=== PATIENT | female | born 1950 | race Caucasian/White ===

== ENCOUNTER 2019-04-16 14:15 | Emergency (ER) | payer MEDICARE, OTHER ==
[~2019-04-16] VITALS: Ht 162.6 cm; Wt 72.6 kg
[~2019-04-16 14:15] MED LIST: CITA20; CITA20 PO; ERYT.5TO BOTHEYES; HYDR1TAB94 PO; Keflex500 MG PO; METF500C PO; Norco 5-325 Ta1 EACH PO; PRAV20 PO; VITAMIN D3400 UNIT; Zofran8 MG PO
[2019-04-16 14:50] LABS: BASOPHILS ABSOLUTE AUTO 0.05 K/mm3 (0.00-0.23); BASOPHILS PERCENT AUTO 1 % (0-2); EOSINOPHILS ABSOLUTE AUTO 0.09 K/mm3 (0.00-0.68); EOSINOPHILS PERCENT AUTO 1 % (0-6); Hematocrit 38.8 % (33.0-51.0); Hemoglobin 13.2 g/dL (11.5-16.0); IMMATURE GRAN ABSOLUTE AUTO 0.03 K/mm3 (0.00-0.10); IMMATURE GRAN PERCENT AUTO 0 % (0-1); LYMPHOCYTES ABSOLUTE AUTO 0.86 K/mm3 (0.84-5.20); LYMPHOCYTES PERCENT AUTO 9 % (21-46); MONOCYTES ABSOLUTE AUTO 0.72 K/mm3 (0.16-1.47); MONOCYTES PERCENT AUTO 8 % (4-13); Mean Corpuscular HGB 30.8 pg (26.0-34.0); Mean Corpuscular Volume 90 fL (80-100); Mean Platelet Volume 11.1 fL (9.1-12.4); NEUTROPHILS ABSOLUTE AUTO 7.84 K/mm3 (1.96-9.15); NEUTROPHILS PERCENT AUTO 82 % (41-73); Platelet Count 208 K/mm3 (150-400); RDW Coefficient Variation 12.3 % (11.7-14.2); RDW Standard Deviation 40.9 fL (35.1-46.3); Red Blood Cell Count 4.29 M/mm3 (3.80-5.20); White Blood Cell Count 9.59 K/mm3 (4.00-11.30)
[2019-04-16 15:13] LABS: Alanine Aminotransfer (ALT/SGP 37 U/L (12-78); Albumin, Blood 3.9 g/dL (3.4-5.0); Albumin/Globulin Ratio 1.1 (0.8-1.8); Alk Phos 103 U/L (50-136); Anion Gap 7 mmol/L (6-16); Aspartate Aminotrans (AST/SGOT 24 U/L (12-37); Bilirubin, Total 0.2 mg/dL (0.1-1.0); Blood Urea Nitrogen 18 mg/dL (8-24); Bun/Creatinine Ratio 23.3 (12.0-20.0); CO2, Blood 25 mmol/L (21-32); Calcium, Blood 9.3 mg/dL (8.5-10.1); Chloride, Blood 107 mmol/L (98-108); Creatinine, Blood 0.77 mg/dL (0.40-1.00); Globulin, Blood 3.7 g/dL (2.2-4.0); Glomerular Filtration Rate >60 (60-); Glucose, Blood 99 mg/dL (70-99); Potassium, Blood 4.2 mmol/L (3.5-5.5); Sodium, Blood 139 mmol/L (136-145); Total Protein, Blood 7.6 g/dL (6.4-8.2); Troponin I <0.015 ng/mL (0.000-0.040)
[2019-04-16] MEDS ORDERED: Prednisone20 MG PO (16:16)
[2019-04-16] MEDS ORDERED: BENZ100A PO (16:16)
== END 2019-04-16 16:36 | disposition home or self-care (01) ==
LOC: ER 14:15
PROVIDERS: Physician Assistant
DX: J20.8 Acute bronchitis due to other specified organisms (principal); B97.89 Other viral agents as the cause of diseases classified elsewhere; Z79.899 Other long term (current) drug therapy; Z79.84 Long term (current) use of oral hypoglycemic drugs; Z87.891 Personal history of nicotine dependence
CPT/HCPCS: 36415; 71046; 80053; 83690; 84484; 85025; 93005; 93010; 94640; 99284-25; J7512

== ENCOUNTER 2019-09-24 20:00 | Emergency (ER) | payer MEDICARE, OTHER ==
[~2019-09-24] VITALS: Ht 162.6 cm; Wt 65.8 kg
[~2019-09-24 20:00] MED LIST changes: +BENZ100A PO; +Prednisone20 MG PO
== END 2019-09-24 23:14 | disposition home or self-care (01) ==
LOC: ER 20:00
DX: S01.01XA Laceration without foreign body of scalp, initial encounter (principal); F32.9 Major depressive disorder, single episode, unspecified; E78.5 Hyperlipidemia, unspecified; Z23 Encounter for immunization; Z79.899 Other long term (current) drug therapy; Z79.84 Long term (current) use of oral hypoglycemic drugs; Z87.891 Personal history of nicotine dependence; W18.30XA Fall on same level, unspecified, initial encounter
CPT/HCPCS: 12002; 70450; 90714; 99283-25

== ENCOUNTER 2019-10-06 16:51 | Emergency (ER) | payer MEDICARE, OTHER ==
[~2019-10-06] VITALS: Ht 160 cm; Wt 65.8 kg
== END 2019-10-06 17:07 | disposition home or self-care (01) ==
LOC: ER 16:51
DX: S01.01XD Laceration without foreign body of scalp, subsequent encounter (principal); Z87.891 Personal history of nicotine dependence

== ENCOUNTER → 2021-07-23 | Outpatient (CLI) | payer MEDICARE, OTHER ==
[2021-07-23 20:30] LABS: Adenovirus F 40/41 Not Detected (NOT DETECT); Astrovirus Not Detected (NOT DETECT); Campylobacter Sp Not Detected (NOT DETECT); Cryptosporidium Not Detected (NOT DETECT); Cyclospora Cayetanensis Not Detected (NOT DETECT); E. Coli O157 Not Detected (NOT DETECT); Entamoeba Histolytica Not Detected (NOT DETECT); Enteroaggregative E. coli-EAEC Not Detected (NOT DETECT); Enteropathogenic E. coli-EPEC Not Detected (NOT DETECT); Enterotoxigenic E. coli-ETEC Not Detected (NOT DETECT); Giardia Lamblia Not Detected (NOT DETECT); Norovirus GI/GII Not Detected (NOT DETECT); Plesiomonas Shigelloides Not Detected (NOT DETECT); Rotavirus A Not Detected (NOT DETECT); Salmonella Sp Not Detected (NOT DETECT); Sapovirus Not Detected (NOT DETECT); Shiga Toxin-prod E. coli-STEC Not Detected (NOT DETECT); Shigella/Enteroin E. coli-EIEC Not Detected (NOT DETECT); Vibrio Cholerae Not Detected (NOT DETECT); Vibrio Sp Not Detected (NOT DETECT); Yersinia Enterocolitica Not Detected (NOT DETECT)
== END | disposition home or self-care (01) ==
LOC: LAB SHORT 13:30
PROVIDERS: Physician Assistant Medical
DX: R11.0 Nausea (principal); R14.0 Abdominal distension (gaseous); R19.7 Diarrhea, unspecified
CPT/HCPCS: 87507

== ENCOUNTER 2022-08-08 10:04 | Emergency (ER) | payer MEDICARE, OTHER ==
[~2022-08-08] VITALS: Ht 162.6 cm; Wt 68.0 kg
[2022-08-08] MEDS ORDERED: TRAZ50 PO (10:19)
[2022-08-08] MEDS ORDERED: OMEP20ER PO (10:20)
[2022-08-08] MEDS ORDERED: Ativan1 MG PO (11:55)
[2022-08-08 12:07] VITALS: BP 123/70
== END 2022-08-08 12:08 | disposition home or self-care (01) ==
LOC: ER 10:04
DX: F41.9 Anxiety disorder, unspecified (principal); R20.0 Anesthesia of skin; M54.50 Low back pain, unspecified; G89.29 Other chronic pain; E78.5 Hyperlipidemia, unspecified; F32.A Depression, unspecified; Z87.891 Personal history of nicotine dependence; Z85.42 Personal history of malignant neoplasm of other parts of uterus; Z79.899 Other long term (current) drug therapy; Z79.84 Long term (current) use of oral hypoglycemic drugs
CPT/HCPCS: 96374; 99283-25; J2060

== ENCOUNTER 2023-03-03 09:19 | Emergency (ER) | payer OTHER, MEDICARE ==
[~2023-03-03] VITALS: Ht 162.6 cm; Wt 68.0 kg
[~2023-03-03 09:19] MED LIST changes: +Ativan1 MG PO; +OMEP20ER PO; +TRAZ50 PO
[2023-03-03 09:43] VITALS: BP 143/78
[2023-03-03] MEDS ORDERED: OXAYDO5 M1 PO (11:24)
[2023-03-03] MEDS ORDERED: IBUP600 PO (11:24)
== END 2023-03-03 11:34 | disposition home or self-care (01) ==
LOC: ER 09:19
DX: S20.212A Contusion of left front wall of thorax, initial encounter (principal); Z87.81 Personal history of (healed) traumatic fracture; E78.5 Hyperlipidemia, unspecified; Z87.891 Personal history of nicotine dependence; Z85.42 Personal history of malignant neoplasm of other parts of uterus; Z79.84 Long term (current) use of oral hypoglycemic drugs; Z79.899 Other long term (current) drug therapy; V28.49XA Other motorcycle driver injured in noncollision transport accident in traffic accident, initial encounter; Y92.410 Unspecified street and highway as the place of occurrence of the external cause
CPT/HCPCS: 71101; 96372; 99284-25; A9270; J1885

== ENCOUNTER 2023-05-11 17:11 | Emergency (ER) | payer MEDICARE, OTHER ==
[~2023-05-11] VITALS: Ht 162.6 cm; Wt 68.0 kg
[~2023-05-11 17:11] MED LIST changes: +IBUP600 PO; +OXAYDO5 M1 PO
[2023-05-11] MEDS ORDERED: Ondansetron HCl 2 MG / ML 2ML Vial IV ONE (17:50)
[2023-05-11] MEDS ORDERED: FentaNYL Citrate 50 MCG/ML 2 ML Injection IV ONE ×2 (17:50→19:10)
[2023-05-11] MEDS ORDERED: Ketorolac Tromethamine 30mg Vial IV ONE (19:30)
[2023-05-11] MEDS ORDERED: RX Prepack 6 Tabs Oxycodone 5mg UD ONE (19:55)
[2023-05-11] MEDS ORDERED: OXAYDO5 M1 PO ×2 (20:01→20:04)
[2023-05-11 20:30] VITALS: BP 121/70
== END 2023-05-11 20:45 | disposition home or self-care (01) ==
LOC: ER 17:11
DX: S82.851A Displaced trimalleolar fracture of right lower leg, initial encounter for closed fracture (principal); G89.29 Other chronic pain; E78.5 Hyperlipidemia, unspecified; F32.A Depression, unspecified; W01.0XXA Fall on same level from slipping, tripping and stumbling without subsequent striking against object, initial encounter; Y93.01 Activity, walking, marching and hiking; Y92.480 Sidewalk as the place of occurrence of the external cause; Z79.899 Other long term (current) drug therapy; Z79.84 Long term (current) use of oral hypoglycemic drugs; Z87.891 Personal history of nicotine dependence
CPT/HCPCS: 29515; 73610; 93005; 93010; 96374-59; 96375-59; 96376-59; 99284-25; A9270; J1885; J2405; J3010

== ENCOUNTER 2023-05-14 07:53 | Day surgery (SDC) | payer MEDICARE, OTHER ==
[~2023-05-14] VITALS: Ht 157.5 cm; Wt 74.8 kg
[~2023-05-14 07:53] MED LIST changes: +CeFAZolin Sodium 2,000 MG VIAL ONE; +EPINEPhrine HCl 1 MG/ML 1ML Amp ONE; +Lactated Ringer's 1,000 ML IV ONE; +NS 50 ML IV ONE; +Ropivacaine 0.5% HCl/Pf 5 MG/ML 20ML VIAL ONE
[2023-05-14] MEDS ORDERED: Lactated Ringer's 1,000 ML IV ONE (08:40)
[2023-05-14] MEDS ORDERED: Ropivacaine 0.5% HCl/Pf 5 MG/ML 20ML VIAL ONE (09:23)
[2023-05-14] MEDS ORDERED: Midazolam HCl 1MG / ML 2ML Vial ONE (09:23)
[2023-05-14] MEDS ORDERED: Ropivacaine 0.2% HCl/Pf 2 MG/ML 20ML Vial ONE (10:05)
[2023-05-14] MEDS ORDERED: propofoL 40 ML IV ONE (10:16)
--- NOTE | 2023-05-14 10:18 | NUR ---
05/14/23 1018 Nelsy Montana TIME OUT PERFORMED AT BEDSIDE AT 0934 WITH BAKARI PHELAN PREOP NERVE BLOCK X2 PERFORMED AT BEDSIDE BY BAKARI PHELAN PT ON VIA NC WITH CONTINUOUS O2 MONITORING. DR BERG ASSISTING WITH NERVE BLOCK.
--- NOTE | 2023-05-14 10:52 | NUR ---
05/14/23 1052 Izzy Starr A PILLOW UNDER HEAD, RIGHT GEL HIP BUMP PLACED BY SURGEON, BILATERAL ARMS SECURED ON PADDED ARM BOARD. GENERALIZED BRUISING NOTED TO RIGHT FOOT.
[2023-05-14] MEDS ORDERED: Ondansetron HCl 2 MG / ML 2ML Vial ONE (11:13)
[2023-05-14] MEDS ORDERED: Dexamethasone Sod Phos 10 MG/ML 1ML VIAL ONE (11:13)
--- NOTE | 2023-05-14 12:14 | NUR ---
05/14/23 1214 HOANG AGUSTIN PT THRASHES ABOUT ALMOST CONTINUOUS. ABLE TO HOLD STILL FOR ONLY A FEW MOMENTS. SHE DENIES PAIN, NAUSEA, AND BEING COLD. SHE TOOK OXYGEN OFF, WILL TRIAL OFF TO SEE IF SHE CAN MAINTAIN HER SATS W/O O2.RANGE FROM 96-91% ON RA. WHEN ENCOURAGE PT TO DEEP BREATH, SAT INCREASES
[2023-05-14 12:35] VITALS: BP 117/103
--- NOTE | 2023-05-14 12:50 | NUR ---
05/14/23 1250 HOANG AGUSTIN PT IS STARTING TO SETTLE DOWN A BIT. NOT MANY UNCONTROLLED MOVEMENTS. PT WAS ADJUSTED IN BED, CURRENTLY OFF OXYGEN. RUNNING 94-96% ON RA. I WILL PLAN ON KEEPING HER IN BED AT THIS TIME SHE APPLEARS TO BE COMFORTABLE.
== END 2023-05-14 14:00 | disposition home or self-care (01) ==
LOC: ORSCSDS 07:53
PROVIDERS: Orthopaedic Surgery
PROC: 0QSG04Z Reposition Right Tibia with Internal Fixation Device, Open Approach (ICD-10-PCS; principal; 2023-05-14 09:30)
PROC: 0QSJ04Z Reposition Right Fibula with Internal Fixation Device, Open Approach (ICD-10-PCS; principal; 2023-05-14 09:30)
DX: S82.841A Displaced bimalleolar fracture of right lower leg, initial encounter for closed fracture (principal); X50.1XXA Overexertion from prolonged static or awkward postures, initial encounter; Y93.K1 Activity, walking an animal; F17.210 Nicotine dependence, cigarettes, uncomplicated; E78.00 Pure hypercholesterolemia, unspecified; Z79.899 Other long term (current) drug therapy
CPT/HCPCS: 82947; C1713; C1769; J0171; J0690; J1100; J2250; J2405; J2704; J2795; J7120

== ENCOUNTER 2023-12-01 14:47 | Emergency (ER) | payer MEDICARE, OTHER ==
[~2023-12-01] VITALS: Ht 162.6 cm; Wt 66.7 kg
[~2023-12-01 14:47] MED LIST changes: -CeFAZolin Sodium 2,000 MG VIAL ONE; -EPINEPhrine HCl 1 MG/ML 1ML Amp ONE; -Lactated Ringer's 1,000 ML IV ONE; -NS 50 ML IV ONE; -Ropivacaine 0.5% HCl/Pf 5 MG/ML 20ML VIAL ONE
[2023-12-01 14:54] VITALS: BP 126/85
[2023-12-01 15:18] LABS: Source, Urine Clean Catch
[2023-12-01 15:21] LABS: Bilirubin, Urine Neg (Neg); Blood, Urine Neg (Neg); Color, Urine Yellow (P-Yellow); Glucose Qualitative, Urine Neg (Neg); Ketones, Urine Neg (Neg); Leukocyte Esterase, Urine 1+ (Neg); Nitrite, Urine Neg (Neg); Protein, Urine Neg (Neg); Urobilinogen, Urine NORM (Normal)
[2023-12-01 15:30] LABS: BASOPHILS ABSOLUTE AUTO 0.04 K/mm3 (0.00-0.23); BASOPHILS PERCENT AUTO 0 % (0-2); EOSINOPHILS ABSOLUTE AUTO 0.07 K/mm3 (0.00-0.68); EOSINOPHILS PERCENT AUTO 1 % (0-6); Hematocrit 38.4 % (33.0-51.0); Hemoglobin 13.2 g/dL (11.5-16.0); IMMATURE GRAN ABSOLUTE AUTO 0.03 K/mm3 (0.00-0.10); IMMATURE GRAN PERCENT AUTO 0 % (0-1); LYMPHOCYTES ABSOLUTE AUTO 3.28 K/mm3 (0.84-5.20); LYMPHOCYTES PERCENT AUTO 34 % (21-46); MONOCYTES ABSOLUTE AUTO 0.79 K/mm3 (0.16-1.47); MONOCYTES PERCENT AUTO 8 % (4-13); Mean Corpuscular HGB 30.3 pg (26.0-34.0); Mean Corpuscular HGB Conc 34.4 g/dL (31.5-36.5); Mean Corpuscular Volume 88 fL (80-100); Mean Platelet Volume 10.9 fL (9.1-12.4); NEUTROPHILS ABSOLUTE AUTO 5.47 K/mm3 (1.96-9.15); NEUTROPHILS PERCENT AUTO 57 % (41-73); Platelet Count 265 K/mm3 (150-400); RDW Coefficient Variation 12.7 % (11.7-14.2); RDW Standard Deviation 41.6 fL (35.1-46.3); Red Blood Cell Count 4.35 M/mm3 (3.80-5.20); White Blood Cell Count 9.68 K/mm3 (4.00-11.30)
[2023-12-01 15:38] LABS: Albumin, Blood 3.5 g/dL (3.4-5.0); Bilirubin, Total 0.3 mg/dL (0.1-1.0); Bun/Creatinine Ratio 20.8 (12.0-20.0); Creatinine, Blood 0.82 mg/dL (0.40-1.00); Globulin, Blood 3.6 g/dL (2.2-4.0); Potassium, Blood 4.4 mmol/L (3.5-5.5); Total Protein, Blood 7.1 g/dL (6.4-8.2)
[2023-12-01 15:42] LABS: Appearance, Urine Hazy (Clear); Mucus Light (0-Heavy)
[2023-12-01 15:43] LABS: Bacteria Mod /hpf; Red Blood Cells, Urine 0-2 /hpf (0-2); Squamous Epithelial Cells Few /hpf (Few)
[2023-12-01 18:12] LABS: Free Thyroxine 0.95 ng/dL (0.70-1.60); Magnesium, Blood 2.4 mg/dL (1.6-2.4)
[2023-12-01 18:14] LABS: Thyroid Stimulating Hormone 2.07 uIU/mL (0.360-4.800)
== END 2023-12-01 17:44 | disposition home or self-care (01) ==
LOC: ER 14:47
PROVIDERS: Emergency Medicine; Student in an Organized Health Care Education/Training Program
DX: R10.11 Right upper quadrant pain (principal); R53.1 Weakness; I10 Essential (primary) hypertension; E11.9 Type 2 diabetes mellitus without complications; E78.5 Hyperlipidemia, unspecified; Z79.84 Long term (current) use of oral hypoglycemic drugs; Z79.899 Other long term (current) drug therapy; Z53.29 Procedure and treatment not carried out because of patient's decision for other reasons; Z88.5 Allergy status to narcotic agent; Z87.891 Personal history of nicotine dependence
CPT/HCPCS: 80053; 81001; 83690; 83735; 84439; 84443; 84484; 85025; 87086; 93005; 93010; 99284-25

== ENCOUNTER 2025-02-23 11:01 | Day surgery (SDC) | payer MEDICARE, OTHER ==
[2025-02-23] VITALS (23 sets, daily range): BP systolic 84–135; BP diastolic 58–110
[~2025-02-23] VITALS: Ht 160 cm; Wt 62.8 kg
--- NOTE | 2025-02-23 11:45 | NUR ---
Patient confirms NPO status and agrees with scheduled surgery. Patient States Post-Procedure ride home has been arranged. Patient states colon prep results clear. Pre-Op teaching done. Pt verbalizes understanding. History, Chart, Medications and Allergies reviewed before start of procedure.
[2025-02-23] MEDS ORDERED: Benzocaine Oral Spray 0.5ML UD ONE (12:09)
--- NOTE | 2025-02-23 12:21 | NUR ---
02/23/25 1221 Donya Ruiz CONFIRMED AND REVIEWED H&P, MEDCICATIONS, ALLERGIES, MEDICAL HISTORY, RESPIRATORY HISTORY, VITAL SIGNS, 3-LEAD EKG, CONSENTS, AND PHYSICIAN ORDERS. PATIENT CONFIRMS NPO STATUS AND AGREES WITH SCHEDULED PROCEDURE. MONITOR INTACT WITH CONTINUOUS PULSE OXIMETRY, CAPNOGRAPHY, 3-LEAD EKG, INTERMITTENT BP. SUPPLEMENTAL O2 TO BE TITRATED THROUGHOUT PROCEDURE TO MAINTAIN O2 SATURATION ABOVE 90%. PATIENT DETERMINED TO BE ASA APPROPRIATE FOR PROPOFOL SEDATION PRIOR TO START OF PROCEDURE BY DR. MONTALVO
[2025-02-23] MEDS ORDERED: Midazolam HCl 1MG / ML 2ML Vial ONE (12:33)
== END 2025-02-23 23:00 | disposition home or self-care (01) ==
LOC: ORSCMMR 11:01 → ORD 12:15 → ORSCMMR 12:15
PROVIDERS: Internal Medicine Gastroenterology
PROC: 0DB98ZX Excision of Duodenum, Via Natural or Artificial Opening Endoscopic, Diagnostic (ICD-10-PCS; principal; 2025-02-23 12:15)
PROC: 0DB68ZX Excision of Stomach, Via Natural or Artificial Opening Endoscopic, Diagnostic (ICD-10-PCS; principal; 2025-02-23 12:15)
PROC: 0DJD8ZZ Inspection of Lower Intestinal Tract, Via Natural or Artificial Opening Endoscopic (ICD-10-PCS; principal; 2025-02-23 12:15)
DX: R10.13 Epigastric pain (principal); R10.11 Right upper quadrant pain; Z12.11 Encounter for screening for malignant neoplasm of colon; K57.30 Diverticulosis of large intestine without perforation or abscess without bleeding; Z86.0102 Personal history of hyperplastic colon polyps; Z85.42 Personal history of malignant neoplasm of other parts of uterus; F32.A Depression, unspecified; E78.00 Pure hypercholesterolemia, unspecified; Z79.899 Other long term (current) drug therapy; F17.210 Nicotine dependence, cigarettes, uncomplicated
CPT/HCPCS: 43239; G0105; 82947; 88305; 88342; A9270; J2250; J2704; J7120

== ENCOUNTER 2025-03-12 06:26 | Day surgery (SDC) | payer MEDICARE, OTHER ==
[~2025-03-12] VITALS: Ht 162.6 cm; Wt 64.5 kg
[2025-03-12] VITALS (13 sets, daily range): BP systolic 93–121; BP diastolic 59–88
[~2025-03-12 06:26] MED LIST changes: +Crestor40 MG PO; +HYDPAM100 PO; +ONDA4 PO; +PRAM.125 PO; +TRAZ100 PO; -TRAZ50 PO
[2025-03-12] MEDS ORDERED: Sugammadex Sodium 200 MG/2ML SDV (100 MG/ML) ONE (07:27)
[2025-03-12] MEDS ORDERED: FentaNYL Citrate 50 MCG/ML 2 ML Injection ONE ×2 (07:27→09:54)
[2025-03-12] MEDS ORDERED: Ondansetron HCl 2 MG / ML 2ML Vial ONE (07:27)
[2025-03-12] MEDS ORDERED: Rocuronium Bromide 10 MG/ML 5ML Injection IV ONE ×2 (07:27→08:27)
[2025-03-12] MEDS ORDERED: Dexamethasone Sod Phos 10 MG/ML 1ML VIAL ONE (07:27)
[2025-03-12] MEDS ORDERED: Bupivacaine 0.5% W/EPI 1:200000 SDV 30 ML Vial ONE (07:29)
--- NOTE | 2025-03-12 08:00 | NUR ---
Ambulatory in Day Surgery. History, Chart, Medications and Allergies reviewed before start of procedure. Patient confirms NPO status and agrees with scheduled surgery. Patient reports completing Chlorhexadine shower X2 prior to admission to hospital. Surgical site prepped with 2% Chlorhexidine cloth wipe. Patient States Post-Procedure ride home has been arranged.
[2025-03-12] MEDS ORDERED: ePHEDrine Sulfate 50 MG/ML 1ML Injection ONE (08:13)
[2025-03-12] MEDS ORDERED: Metoclopramide HCl 5MG / ML 2ML Vial IV PRN (09:30)
[2025-03-12] MEDS ORDERED: FentaNYL Citrate 50 MCG/ML 2 ML Injection IV PRN ×3 (09:30→09:35)
[2025-03-12] MEDS ORDERED: HYDROmorphone HCl/Pf 1MG SYR IV PRN (09:35)
[2025-03-12] MEDS ORDERED: Ondansetron HCl 2 MG / ML 2ML Vial IV PRN (09:35)
[2025-03-12] MEDS ORDERED: OxyCODONE 5 mg/Acetamin 325 mg TABLET PO PRN (10:00)
--- NOTE | 2025-03-12 11:05 | NUR ---
Patient up to Ambulate independently. Gait steady. Discharge instructions reviewed with patient. Patient verbalizes understanding. Copy given to patient to take home, WE[facility] FAMILY. Patient States Post-Procedure ride home has been arranged. Discharged via wheelchair to private car for ride home. PT TOLERATING PO, REPORTS PAIN TOLERABLE. REPORTS READY TO GO HOME. PT FAMILY BEEN TO BEDSIDE. PT GIVEN ICE PACK. DR ALEXANDRA REPORTED SENDING PAIN MEDS ELECTRONICALLY TO PHARMACY.
== END 2025-03-12 11:05 | disposition home or self-care (01) ==
LOC: ORSCMMR 06:26 → ORD 08:00 → ORSCMMR 11:05
PROVIDERS: Surgery
PROC: BF532Z0 Other Imaging of Gallbladder and Bile Ducts using Fluorescing Agent, Intraoperative (ICD-10-PCS; principal; 2025-03-12 08:00)
PROC: 8E0W4CZ Robotic Assisted Procedure of Trunk Region, Percutaneous Endoscopic Approach (ICD-10-PCS; principal; 2025-03-12 08:00)
PROC: 0FT44ZZ Resection of Gallbladder, Percutaneous Endoscopic Approach (ICD-10-PCS; principal; 2025-03-12 08:00)
DX: K80.10 Calculus of gallbladder with chronic cholecystitis without obstruction (principal); R93.2 Abnormal findings on diagnostic imaging of liver and biliary tract; J44.9 Chronic obstructive pulmonary disease, unspecified; F17.210 Nicotine dependence, cigarettes, uncomplicated; F32.A Depression, unspecified; K76.0 Fatty (change of) liver, not elsewhere classified; E78.5 Hyperlipidemia, unspecified; Z79.899 Other long term (current) drug therapy
CPT/HCPCS: 74300; 88304; A9270; C1894; J1100; J2405; J2704; J3010; J7120